=== PATIENT | male | born 1980 | race Caucasian/White ===

== ENCOUNTER 2020-10-13 20:29 | Emergency (ER) | payer OTHER ==
[~2020-10-13] VITALS: Ht 177.8 cm; Wt 108.9 kg
[2020-10-13] MEDS ORDERED: AUGMENTIN 875-1 EACH PO ×2 (22:12→22:13)
[2020-10-13] MEDS ORDERED: NORCO5 PO ×2 (22:12→22:13)
[2020-10-13] MEDS ORDERED: IBUPROFEN 800800 M1 PO ×2 (22:12→22:13)
[2020-10-13 22:25] VITALS: BP 155/68
== END 2020-10-13 22:25 | disposition home or self-care (01) ==
LOC: M.ERS 20:29
DX: S51.811A Laceration without foreign body of right forearm, initial encounter (principal); W54.0XXA Bitten by dog, initial encounter; Y93.89 Activity, other specified; Y92.89 Other specified places as the place of occurrence of the external cause; Y99.8 Other external cause status